=== PATIENT | female | born 1995 | race Caucasian/White ===

== ENCOUNTER 2020-07-14 05:37 | Emergency (ER) | payer MEDICAID ==
[~2020-07-14] VITALS: Ht 170.2 cm; Wt 89.4 kg
[2020-07-14 05:42] VITALS: BP 118/70
--- NOTE | 2020-07-14 05:50 | NUR ---
25 Y/O F 06/01 HEAD PAIN AFTER PT HIT HEAD ON A SHELF OVER HER BED WHEN WAKING UP. PT HAS A SMALL CONTUSION, DENIES LOSS OF CONSCIOUSNESS BUT STATES SHE FEELS VERY TIRED. LOCX4. STATES NAUSEA. MED HX: [facility]
--- NOTE | 2020-07-14 05:50 | NUR ---
PT TAKEN TO ER BED 11
--- NOTE | 2020-07-14 05:51 | NUR ---
pt ambulated to restroom steady gait
--- NOTE | 2020-07-14 05:52 | NUR ---
PT AMBULATED TO BED 11, STEADY GAIT
--- NOTE | 2020-07-14 05:59 | NUR ---
ERMD AT BEDSIDE
[2020-07-14] MEDS ORDERED: KETOROLAC 60 MG/2 ML VIAL IM ONE (06:05)
[2020-07-14] MEDS ORDERED: ONDANSETRON 4 MG ODT PO ONE (06:05)
[2020-07-14 06:35] VITALS: BP 118/70
--- NOTE | 2020-07-14 06:35 | NUR ---
Patient discharged with v/s stable. Written and verbal after care instructions given and explained. Patient alert, oriented and verbalized understanding of instructions. Ambulatory with steady gait. All questions addressed prior to discharge. ID band removed. Patient advised to follow up with PMD. Rx of MOTRIN AND ZOFRAN given. Patient educated on indication of medication including possible reaction and side effects. Opportunity to ask questions provided and answered.
== END 2020-07-14 06:35 | disposition home or self-care (01) ==
LOC: MED 05:37
DX: S09.90XA Unspecified injury of head, initial encounter (principal); M54.2 Cervicalgia; R11.0 Nausea; R53.83 Other fatigue; E07.9 Disorder of thyroid, unspecified; X58.XXXA Exposure to other specified factors, initial encounter; Y93.89 Activity, other specified; Y92.89 Other specified places as the place of occurrence of the external cause; Y99.8 Other external cause status
CPT/HCPCS: 81002; 81025; 96372; 99283; J1885; Q0162

== ENCOUNTER 2020-10-19 18:45 | Emergency (ER) | payer MEDICAID ==
[~2020-10-19] VITALS: Ht 167.6 cm; Wt 95.3 kg
[2020-10-19 18:48] VITALS: BP 121/55
--- NOTE | 2020-10-19 19:00 | NUR ---
PT AMBULATED TO BED 1
[2020-10-19] MEDS ORDERED: FLUORESCEIN OPTH STRIP 1 MG OP ONE (19:20)
[2020-10-19] MEDS ORDERED: TETRACAINE HCL/PF 0.5% OPTH 4 ML BTL ONE (19:25)
--- NOTE | 2020-10-19 19:27 | NUR ---
eye examination kit prepared at bedside.
[2020-10-19] MEDS ORDERED: TETRACAINE HCL/PF 0.5% OPTH 4 ML BTL OP ONE (19:30)
--- NOTE | 2020-10-19 19:31 | NUR ---
PATIENT PRESENTS TO ED WITH LEFT EYE PAIN THAT STARTED TODAY. PT STATES THE PAIN STARTED AFTER PUTTING IN A CONTACT LENS. DENIES N/V/D; SKIN IS PINK/WARM/DRY; AAOX4 WITH EVEN AND STEADY GAIT; LUNGS CLEAR BL; HR EVEN AND REGULAR; PT DENIES ANY FEVER, CP, SOB, OR COUGH AT THIS TIME; PATIENT STATES PAIN OF 0/10 AT THIS TIME; VSS; PATIENT POSITIONED FOR COMFORT; HOB ELEVATED; BEDRAILS UP X2; BED DOWN. ER MD MADE AWARE OF PT STATUS.
[2020-10-19 19:52] VITALS: BP 121/55
--- NOTE | 2020-10-19 19:53 | NUR ---
Patient discharged with v/s stable. Written and verbal after care instructions given and explained. Patient alert, oriented and verbalized understanding of instructions. Ambulatory with steady gait. All questions addressed prior to discharge. ID band removed. Patient advised to follow up with PMD. Rx of TOBRAMYCIN given. Patient educated on indication of medication including possible reaction and side effects. Opportunity to ask questions provided and answered.
== END 2020-10-19 19:52 | disposition home or self-care (01) ==
LOC: MED 18:45
DX: S05.02XA Injury of conjunctiva and corneal abrasion without foreign body, left eye, initial encounter (principal); E07.9 Disorder of thyroid, unspecified; X58.XXXA Exposure to other specified factors, initial encounter; Y93.89 Activity, other specified; Y92.89 Other specified places as the place of occurrence of the external cause; Y99.8 Other external cause status
CPT/HCPCS: 99283